=== PATIENT | male | born 2000 | race African-American/Black ===

== ENCOUNTER 2019-08-21 19:40 | Emergency (ER) | payer OTHER ==
[2019-08-21 19:51] VITALS: BP 123/69
[2019-08-21] MEDS ORDERED: LIDOCAINE 1% 2 ML VIAL MC ONE (20:02)
[2019-08-21] MEDS ORDERED: cefTRIAXone 250 MG VIAL IM STA (20:02)
[2019-08-21] MEDS ORDERED: AZITHROMYCIN 250 MG TABLET PO STA (20:02)
--- NOTE | 2019-08-21 20:20 | ED Physician Documentation ---
History of Present Illness - Stated complaint Stated Complaint: SCREENING - Chief complaint Chief Complaint: General - History obtained from History obtained from: Patient - History of Present Illness Timing: Today Pain level max: 0 Pain level now: 0 - Additonal information Additional information: 19-year-old male states that his partner tested positive for chlamydia. He states he was told to come in for treatment. He is asymptomatic. Nothing makes it better or worse. Review of Systems Constitutional: denies: Fever, Chills GI: denies: Vomiting : denies: Dysuria, Frequency, Hesitancy, Discharge, Testicular pain Skin: denies: Rash PD PAST MEDICAL HISTORY - Past Medical History Past Medical History: No Cardiovascular: None Respiratory: None Neuro: None Endocrine/Autoimmune: None GI: None : None HEENT: None Psych: None Musculoskeletal: None Derm: None - Past Surgical History Past Surgical History: No - Allergies Allergies/Adverse Reactions: Allergies Allergy/AdvReac Type Severity Reaction Status Date / Time No Known Drug Allergies Allergy Verified 08/21/19 19:48 - Social History Does the pt smoke?: No Smoking Status: Never smoker Does the pt drink ETOH?: No Does the pt have substance abuse?: No - Immunizations Immunizations are current?: Yes - POLST Patient has POLST: No PD ED PE NORMAL - Vitals Vital signs reviewed: Yes - General General: Alert and oriented X 3, No acute distress - HEENT HEENT: Moist mucous membranes - Neck Neck: Supple, no meningeal sign - Cardiac Cardiac: RRR - Respiratory Respiratory: No respiratory distress, Clear bilaterally - Abdomen Abdomen: Soft, Non tender, Non distended - Derm Derm: Warm and dry - Neuro Neuro: Alert and oriented X 3 - Psych Psych: Normal mood, Normal affect Results - Vitals Vitals: Vital Signs - 24 hr 08/21/19 19:48 Temperature 37.0 C Heart Rate 57 L Respiratory 14 Rate Blood Pressure 123/69 O2 Saturation 99 Oxygen O2 Source Room air PD MEDICAL DECISION MAKING - ED course Complexity details: considered differential, d/w patient ED course: Patient treated with Rocephin and azithromycin. He will follow-up with his doct or as needed. Patient counseled regarding signs and symptoms for which I believe and urgent re-evaluation would be necessary. Patient with good understanding of and agreement to plan and is comfortable going home at this time This document was made in part using voice recognition software. While efforts are made to proofread this document, sound alike and grammatical errors may occur. Departure - Departure Disposition: 01 Home, Self Care Clinical Impression: Chlamydia Condition: Good Instructions: ED STD Male Treated Follow-Up: your,doctor as needed. [Other] Comments: Return if you worsen. Follow up with your doctor as needed for further care. Discharge Date/Time: 08/21/19 20:25
== END 2019-08-21 20:25 | disposition home or self-care (01) ==
LOC: ED 19:40
DX: A74.9 Chlamydial infection, unspecified (principal)
CPT/HCPCS: 96372; 99283; A9270

== ENCOUNTER 2019-08-28 22:58 | Emergency (ER) | payer OTHER ==
[2019-08-28 23:07] VITALS: BP 140/88
--- NOTE | 2019-08-28 23:45 | ED Physician Documentation ---
History of Present Illness - Stated complaint Stated Complaint: MALE - Chief complaint Chief Complaint: UTI - Additonal information Additional information: This is a 19-year-old male who presents with darker yellow urine and feeling that his scrotum is intermittently warmer than usual. Patient was told by a partner of his that they tested positive for chlamydia, he was seen here in the last week and treated with ceftriaxone and azithromycin. He did not have any symptoms initially and did not have any pain or burning with urination, denied any discharge from his penis. However after receiving treatment he noticed that his urine was darker yellow, and he also felt that his scrotum feels warm from time to time. He has not had any pain in his testicles and not any discharge no lesions on his penis. He used a condom when he was sexually active with his partner, however he sometimes did have unprotected oral sex. At his last visit he did not have confirmatory urine testing performed Review of Systems Constitutional: denies: Fever GI: denies: Abdominal Pain, Vomiting : denies: Dysuria, Discharge Skin: denies: Rash PD PAST MEDICAL HISTORY - Past Medical History Cardiovascular: None Respiratory: None Neuro: None Endocrine/Autoimmune: None GI: None : None HEENT: None Psych: None Musculoskeletal: None Derm: None - Past Surgical History Past Surgical History: No - Allergies Allergies/Adverse Reactions: Allergies Allergy/AdvReac Type Severity Reaction Status Date / Time No Known Drug Allergies Allergy Verified 08/21/19 19:48 - Social History Does the pt smoke?: No Smoking Status: Never smoker Does the pt drink ETOH?: No Does the pt have substance abuse?: No - Immunizations Immunizations are current?: Yes - POLST Patient has POLST: No PD ED PE NORMAL - Vitals Vital signs reviewed: Yes - General General: Alert and oriented X 3, No acute distress - HEENT HEENT: PERRL - Neck Neck: Supple, no meningeal sign - Cardiac Cardiac: Other (Warm, well perfused extremities) - Respiratory Respiratory: No respiratory distress - Abdomen Abdomen: Soft, Non distended - Male Male : Other (Penis is circumcised, normal in appearance. There are no lesions, no discharge. Scrotum is normal in appearance there are no lesions, no testicular tenderness. Normal testicular lie.) - Derm Derm: Warm and dry - Extremities Extremities: No deformity - Neuro Neuro: Alert and oriented X 3 - Psych Psych: Normal mood, Normal affect Results - Vitals Vitals: Vital Signs - 24 hr 08/28/19 23:02 Temperature 36.8 C Heart Rate 56 L Respiratory 16 Rate Blood Pressure 140/88 H O2 Saturation 100 Oxygen O2 Source Room air - Labs Labs: Laboratory Tests 08/28/19 23:50 Urine Color YELLOW Urine Clarity CLEAR Urine pH 6.0 Ur Specific [place] >=1.030 H Urine Protein NEGATIVE Urine Glucose (UA) NEGATIVE Urine Ketones NEGATIVE Urine Occult Blood NEGATIVE Urine Nitrite NEGATIVE Urine Bilirubin NEGATIVE Urine Urobilinogen 0.2 (NORMAL) Ur Leukocyte Esterase NEGATIVE Ur Microscopic Review NOT INDICATED Urine Culture Comments NOT INDICATED PD MEDICAL DECISION MAKING - ED course Complexity details: considered differential (UTI, STI, orchitis, epididymitis, urethritis) ED course: Patient is well-appearing on exam, presents with fairly benign symptoms including slightly darker urine which is now back to normal, as well as a feeling of transient warmth in his scrotum which is also resolved. He has no testicular tenderness, no epididymal tenderness, no dysuria, no genital lesions. I do not see any signs of orchitis, epididymitis, torsion, or other acute genitourinary pathology today. He was treated appropriately with ceftriaxone and ceftriazone at his last visit, but given his symptoms a urinalysis was performed today and is negative for signs of infection. I also did send chlamydia testing as well to confirm. I discussed follow-up, safe sex practices, and return precautions with the patient, who agreed and was discharged home. Departure - Departure Disposition: 01 Home, Self Care Clinical Impression: History of urine color changes Condition: Good Comments: Your urinalysis today looks normal. We have sent your urine for further testing, you will be called if it is positive for sexual transmitted infection. You have been treated for the most common sexually transmitted infections, please continue to practice safe sex and if you are having worsening symptoms such as testicle pain, lesions on the penis, discharge in the penis, or other concerning symptoms, return to the emergency department or follow-up with your primary care provider.
[2019-08-29 00:08] LABS: BILIRUBIN,URINE NEGATIVE (NEGATIVE); GLUCOSE, URINE (UA) NEGATIVE (NEGATIVE); KETONES,URINE (UA) NEGATIVE (NEGATIVE); LEUKOCYTE ESTERASE, URINE NEGATIVE (NEGATIVE); NITRITE,URINE NEGATIVE (NEGATIVE); OCCULT BLOOD,URINE NEGATIVE (NEGATIVE); PROTEIN,URINE NEGATIVE (NEGATIVE); UROBILINOGEN,URINE 0.2 (NORMAL) E.U./dL (NORMAL)
[2019-08-29 00:09] LABS: CLARITY,URINE CLEAR (CLEAR)
[2019-08-29 18:30] LABS: TRICHOMONAS VAGINALIS DNA NEGATIVE (NEGATIVE)
== END 2019-08-29 00:24 | disposition home or self-care (01) ==
LOC: ED 22:58
DX: R39.89 Other symptoms and signs involving the genitourinary system (principal)
CPT/HCPCS: 81001; 81003; 87086; 87491; 87591; 87661; 99284